=== PATIENT | male | born 1985 | race Caucasian/White ===

== ENCOUNTER 2025-09-13 06:21 | Day surgery (SDC) | payer MEDICAID ==
[~2025-09-13 06:21] MED LIST: Lactated Ringers 1,000 ML IV SCH
[2025-09-13] MEDS: Lactated Ringers 1,000 ML IV SCH (07:07)
[2025-09-13] MEDS ORDERED: Midazolam 1 MG/ML 2 ML SDV ONE (07:33)
[2025-09-13] MEDS ORDERED: Propofol 200 MG/20 ML SDV ONE ×2 (07:33→07:54)
[2025-09-13] MEDS ORDERED: fentaNYL 50 MCG/ML SDV ONE (07:33)
== END 2025-09-13 08:59 | disposition home or self-care (01) ==
LOC: JP.SDS 06:21
PROVIDERS: ATTEND Surgery
DX: K29.50 Unspecified chronic gastritis without bleeding (principal); K21.9 Gastro-esophageal reflux disease without esophagitis; E66.9 Obesity, unspecified; Z68.30 Body mass index [BMI] 30.0-30.9, adult; Z87.891 Personal history of nicotine dependence; Z79.899 Other long term (current) drug therapy
CPT/HCPCS: 00731; 43239; 87081; J2250; J2704; J3010; J7120; 88305